=== PATIENT | female | born 1970 | race Caucasian/White ===

== ENCOUNTER 2023-01-08 18:04 | Emergency (ER) | payer OTHER ==
[~2023-01-08] VITALS: Ht 170 cm; Wt 101.0 kg
[~2023-01-08 18:04] MED LIST: AMOX500C2 PO
--- NOTE | 2023-01-08 18:08 | ED Chest Pain ---
General Chief Complaint: Chest Pain Stated Complaint: CHEST PAIN Source: patient Exam Limitations: no limitations History of Present Illness Date Seen by Provider: Jan 08, 2023 Time Seen by Provider: 18:08 Initial Comments Patient is a 52-year-old female who presents to the emergency room with a chief complaint of midsternal chest pain. Patient points to the epigastrium and states it seems to run from her umbilicus up into her chest. She describes it as both a "squeezing" and "heaviness". It started approximately an hour and a half prior to arrival. She noticed it when she woke up from a nap. She is not nauseated. She states she had chickpea salad for lunch earlier in the day. She takes no daily medications. She is not diabetic. She has had no prior heart work-up. She has no primary care doctor. She is a smoker, currently vaping. She states she does have a family history of coronary artery disease but cannot delineate in who secondary to her current agitation and anxiety. Denies any other current illnesses. Initial EKG is reassuring, normal sinus rhythm at 76 bpm with no ectopy or ST segment elevation or depression. Hypertensive in the 160s over 1 teens in her left arm, 150s over upper 90s in her right arm. Abdomen is soft. No reproducible tenderness. Timing/Duration: 1 hour Severity/Quality: severe, aching, other (heaviness) Location: central Radiation: back Activities at Onset: sleep Prior CP/Workup: no prior chest pain, no prior cardiac workup ASA po CORK INSULATOR: Yes (one baby aspirin) Associated Symptoms: shortness of breath Allergies and Home Medications Allergies Coded Allergies: codeine (Verified Allergy, Unknown, 01/08/23) Patient Home Medication List Home Medication List Reviewed: Yes Dicyclomine HCl (Dicyclomine HCl) 20 Mg Tablet, 20 MG PO QIDACHS Prescribed by: JANEEN MCLEAN on 01/09/23 0129 Hydrocodone/Acetaminophen (Hydrocodone-Acetamin 5-325 mg) 5 Mg-325 Mg Tablet, 1 TAB PO Q6H PRN for PAIN-BREAKTHROUGH Prescribed by: JANEEN MCLEAN on 01/09/23 0130 Ondansetron (Ondansetron Odt) 4 Mg Tab.rapdis, 4 MG SL Q8H PRN for NAUSEA/VOMITING Prescribed by: JANEEN MCLEAN on 01/09/23 0129 Review of Systems Review of Systems Constitutional: see HPI EENTM: No Symptoms Reported Respiratory: Shortness of Air Cardiovascular: Chest Pain Gastrointestinal: No Symptoms Reported Genitourinary: No Symptoms Reported Musculoskeletal: no symptoms reported Skin: no symptoms reported All Other Systems Reviewed Negative Unless Noted: Yes Physical Exam Vital Signs Vital Signs - First Documented 01/08/23 18:05 Temp 36.9 Pulse 79 Resp 22 B/P (MAP) 163/118 (133) Pulse Ox 100 O2 Delivery Room Air Capillary Refill : Height, Weight, BMI Height: '" Weight: lbs. oz. 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 Norm as Tested, Other (very agitated and anxious; agressive with staff; belligerant.) Skin: Normal Color, Warm/Dry Progress/Results/Core Measures Results/Orders Lab Results Laboratory Tests Test 01/08/23 18:13 01/08/23 20:30 Range/Units White Blood Count 6.7 4.3-11.0 10^3/uL Red Blood Count 4.91 3.80-5.11 10^6/uL Hemoglobin 14.5 11.5-16.0 g/dL Hematocrit 43 35-52 % Mean Corpuscular Volume 88 80-99 fL Mean Corpuscular Hemoglobin 30 25-34 pg Mean Corpuscular Hemoglobin Concent 34 32-36 g/dL Red Cell Distribution Width 12.5 10.0-14.5 % Platelet Count 273 130-400 10^3/uL Mean Platelet Volume 11.1 9.0-12.2 fL Immature Granulocyte % (Auto) 0 % Neutrophils (%) (Auto) 59 42-75 % Lymphocytes (%) (Auto) 32 12-44 % Monocytes (%) (Auto) 8 0-12 % Eosinophils (%) (Auto) 1 0-10 % Basophils (%) (Auto) 0 0-10 % Neutrophils # (Auto) 4.0 1.8-7.8 10^3/uL Lymphocytes # (Auto) 2.1 1.0-4.0 10^3/uL Monocytes # (Auto) 0.5 0.0-1.0 10^3/uL Eosinophils # (Auto) 0.1 0.0-0.3 10^3/uL Basophils # (Auto) 0.0 0.0-0.1 10^3/uL Immature Granulocyte # (Auto) 0.0 0.0-0.1 10^3/uL Prothrombin Time 12.1 L 12.2-14.7 SEC INR Comment 0.9 0.8-1.4 Activated Partial Thromboplast Time 30 24-35 SEC Sodium Level 141 135-145 MMOL/L Potassium Level 3.7 3.6-5.0 MMOL/L Chloride Level 106 98-107 MMOL/L Carbon Dioxide Level 24 21-32 MMOL/L Anion Gap 11 5-14 MMOL/L Blood Urea Nitrogen 10 7-18 MG/DL Creatinine 0.86 0.60-1.30 MG/DL Estimat Glomerular Filtration Rate 82 BUN/Creatinine Ratio 12 Glucose Level 98 70-105 MG/DL Calcium Level 9.3 8.5-10.1 MG/DL Corrected Calcium 9.1 8.5-10.1 MG/DL Magnesium Level 2.2 1.6-2.4 MG/DL Total Bilirubin 0.3 0.1-1.0 MG/DL Aspartate Amino Transf (AST/SGOT) 16 5-34 U/L Alanine Aminotransferase (ALT/SGPT) 16 0-55 U/L Alkaline Phosphatase 84 40-136 U/L Troponin I < 0.028 < 0.028 <0.028 NG/ML Total Protein 7.3 6.4-8.2 GM/DL Albumin 4.3 3.2-4.5 GM/DL Lipase 38 8-78 U/L My Orders Orders - JANEEN CMLEAN MD Aspirin Chewable Tablet (Baby Aspirin Ch (01/08/23 18:12) Cbc With Automated Diff (01/08/23 18:17) Magnesium (01/08/23 18:17) Chest 1 View, Ap/Pa Only (01/08/23 18:17) Ekg Tracing (01/08/23 18:17) Comprehensive Metabolic Panel (01/08/23 18:17) Protime With Inr (01/08/23 18:17) Partial Thromboplastin Time (01/08/23 18:17) O2 (01/08/23 18:17) Monitor-Rhythm Ecg Trace Only (01/08/23 18:17) Ed Iv/Invasive Line Start (01/08/23 18:17) Lipase (01/08/23 18:17) Troponin I [place] (01/08/23 18:17) Nitroglycerin 0.4 Mg Btl 25's (Nitrostat (01/08/23 18:30) Antacid Suspension (Mylanta Suspension (01/08/23 18:30) Lidocaine 2% Viscous 15 Ml (Xylocaine Vi (01/08/23 18:30) Sucralfate Tablet (Carafate Tablet) (01/08/23 18:30) Nitroglycerin 0.4 Mg Btl 25's (Nitrostat (01/08/23 18:19) Ketorolac Injection (Toradol Injection) (01/08/23 18:45) Ketorolac Injection (Toradol Injection) (01/08/23 18:40) Fentanyl Inj (Sublimaze Injection) (01/08/23 19:00) Troponin I [place] (01/08/23 20:30) Fentanyl Inj (Sublimaze Injection) (01/08/23 21:30) Dicyclomine Injection (Bentyl Injection) (01/08/23 21:28) Ct Abdomen/Pelvis W (01/08/23 21:50) Diphenhydramine Injection (Benadryl Inje (01/08/23 22:00) Ns Iv 1000 Ml (Sodium Chloride 0.9%) (01/08/23 21:52) Diphenhydramine Injection (Benadryl Inje (01/08/23 21:52) Iohexol Injection (Omnipaque 350 Mg/Ml 1 (01/08/23 22:15) Sodium Chloride Flush (Catheter Flush Sy (01/08/23 22:15) Ns (Ivpb) (Sodium Chloride 0.9% Ivpb Bag (01/08/23 22:15) Fentanyl Inj (Sublimaze Injection) (01/08/23 23:45) Ondansetron Injection (Zofran Injectio (01/08/23 23:45) Us Gallbladder [id number] (01/09/23 00:33) Rx-Ondansetron Po (Rx-Zofran Po) (01/09/23 01:24) Rx-Hydrocodone/Apap 5-325 Mg (Rx-Vicodin (01/09/23 01:30) Medications Given in ED Current Medications Medications Dose Ordered Sig/Tam Route Start Time Stop Time Status Last Admin Dose Admin Acetaminophen/ Hydrocodone Bitart 1 ea Q6H PRN PO 01/09/23 01:30 01/09/23 01:48 DC 01/09/23 01:44 1 EA Al Hydrox/Mg Hydrox/Simethicone 30 ml ONCE ONCE PO 01/08/23 18:30 01/08/23 18:31 DC 01/08/23 18:20 30 ML Aspirin 81 mg STK-MED ONCE .ROUTE 01/08/23 18:12 01/08/23 18:15 DC 01/08/23 18:18 243 MG Diphenhydramine HCl 25 mg ONCE ONCE IVP 01/08/23 22:00 01/08/23 22:01 DC 01/08/23 22:09 25 MG Fentanyl Citrate 50 mcg ONCE ONCE IVP 01/08/23 19:00 01/08/23 19:01 DC 01/08/23 19:03 50 MCG Fentanyl Citrate 50 mcg ONCE ONCE IVP 01/08/23 21:30 01/08/23 21:31 DC 01/08/23 21:47 50 MCG Fentanyl Citrate 50 mcg ONCE ONCE IVP 01/08/23 23:45 01/08/23 23:46 DC 01/09/23 00:10 50 MCG Iohexol 100 ml ONCE ONCE IV 01/08/23 22:15 01/08/23 22:16 DC 01/08/23 22:18 80 ML Ketorolac Tromethamine 15 mg ONCE ONCE IVP 01/08/23 18:45 01/08/23 18:46 DC 01/08/23 18:42 15 MG Lidocaine HCl 5 ml ONCE ONCE PO 01/08/23 18:30 01/08/23 18:31 DC 01/08/23 18:20 5 ML Nitroglycerin 0.4 mg NEEDED PRN SL 01/08/23 18:30 01/09/23 01:48 DC 01/08/23 18:23 0.4 MG Ondansetron HCl 8 mg ONCE ONCE IVP 01/08/23 23:45 01/08/23 23:46 DC 01/09/23 00:09 8 MG Sodium Chloride 10 ml NEEDED PRN IV 01/08/23 22:15 01/09/23 01:48 DC 01/08/23 22:18 10 ML Sodium Chloride 100 ml ONCE ONCE IV 01/08/23 22:15 01/08/23 22:16 DC 01/08/23 22:18 80 ML Sucralfate 1 gm ONCE ONCE PO 01/08/23 18:30 01/08/23 18:31 DC 01/08/23 18:20 1 GM Vital Signs/I&O 01/08/23 01/09/23 18:05 01:45 Temp 36.9 Pulse 79 87 Resp 22 18 B/P (MAP) 163/118 (133) 130/69 Pulse Ox 100 98 O2 Delivery Room Air Room Air Progress Progress Note #1: Time: 18:40 Progress Note NOtified by patient's nurse, KWAME Braun, that the patient received no relief from nitro x3 and the GI cocktail. Toradol ordered. CXR pending. Progress Note #2: Time: 21:51 Progress Note Pain returned intensely. re-ordering fentanyl and adding bentyl. CT abdomen and pelvis with contrast. Benadryl 25mg IV and IVF Progress Note #3: Time: 01:15 Progress Note Patient seen and evaluated by me. Evaluation today includes physical exam, EKG, CBC, Chem-12, troponin x2, coags, chest x-ray, CT scan abdomen and pelvis with IV contrast, gallbladder ultrasound. Pertinent physical exam findings include well-developed well-nourished obese 52-year-old female moderate to severe distress secondary to chest and epigastric pain. Vital signs are stable, slightly hypertensive with diastolic just above 110. Not tachycardic. Not hypoxic. Heart is regular, lungs are clear. Abdominal exam initially limited secondary to patient agitation however she does complain of epigastric tenderness to palpation. No rebound or involuntary guarding. Bowel sounds are present. Patient is moving all extremities equally, no lower extremity edema. No neurologic deficits noted. Differential diagnosis based on history and physical exam, acute coronary syndrome, pulmonary embolism, perforated viscus, aortic dissection. Work-up reviewed by me, EKG is normal, no ST segment elevation or depression. CBC is reviewed completely normal, chemistry is normal, troponin negative x2 4 hours from onset of pain. Coags negative. Single view chest x-ray reviewed by me independently, normal mediastinal silhouette, no effusion, no infiltrate, no pneumothorax noted. Patient is treated initially with baby aspirin, GI cocktail and sublingual nitro. She is also given Toradol, fentanyl and Benadryl. Multiple doses of fentanyl subsequently alleviated pain as did Zofran alleviate nausea. She is also given IM Bentyl. CT scan abdomen pelvis was unremarkable for any acute intra-abdominal pathology. Gallbladder ultrasound was obtained and demonstrated gallstones with slightly thickened wall. No pericholecystic fluid. Consideration for acute cholecystitis however patient's labs are completely normal and pain was resolved with medication. Patient was given prescriptions for hydrocodone and Zofran and dicyclomine for home. She was referred to Dr. Leos for further evaluation and work-up and possible cholecystectomy. She was given return precautions to include return of pain, fever and vomiting to come back to the emergency room for possible admission for cholecystectomy. She is comfortable with the plan of care, pain-free at discharge. All questions are sought and answered. Initial ECG Impression Date: Jan 08, 2023 Initial ECG Impression Time: 18:09 Initial ECG Rate: 76 Initial ECG Rhythm: Normal Sinus Initial ECG Intervals NM interval 149 QRS 94 QTc 451 Comment Normal sinus rhythm without ectopy, low voltage lead III and aVL, no ST segment elevation or depression is noted. Normal intervals Diagnostic Imaging Diagonstic Imaging: Xray Plain Films/CT/US/NM/MRI: chest Comments [facility]. [place], [place] NAME: JORGE SALINAS [facility] REC#: [id number] PT STATUS: REG ER : 1970 PHYSICIAN: JANEEN MCLEAN MD ADMIT DATE: 01/08/23/ER Draft Date of Exam:01/08/23 CHEST 1 VIEW, AP/PA ONLY INDICATION: Chest pain. EXAMINATION: AP view of the chest was obtained. COMPARISON: No previous study is available for comparison at this time. FINDINGS: Heart size and pulmonary vasculature are within normal limits and the lungs are clear, bilaterally. IMPRESSION: Unremarkable chest. Dictated on workstation # [id number] Dict: 01/08/231910 Trans: 01/08/231913 [id number] Interpreted by: EDI WERNER MD Electronically signed by: Jen Imaging: CT Comments CT Abdomen per virtual radiologic - No acute findings Departure Impression Primary Impression: Biliary colic Additional Impression: Cholelithiasis Qualified Codes: K80.20 - Calculus of gallbladder without cholecystitis without obstruction Disposition: HOME, SELF-CARE Condition: Improved Departure-Patient Inst. Decision time for Depature: 01:26 Referrals: RENETTA LEOS DO Patient Instructions: Gallbladder Diet, Gallstones ED Add. Discharge Instructions: Try and avoid fatty foods if possible. Avoid heavy cream-based foods, lots of cheeses, fried foods etc. Take dicyclomine 20 mg 30 minutes before eating up to 4 times daily. This will help with gallbladder associated pain. Ondansetron/Zofran 4 mg tablets every 8 hours as needed for nausea. Hydrocodone 5 mg tablets every 6 hours as needed for more intense pain. If you develop a fever, pain that is not relieved with prescription medications, excessive nausea and vomiting or any other emergent, concerning symptoms please return to the emergency room for reevaluation. Please call Dr. Leos's office on Tuesday for a follow-up appointment next week for further evaluation of your gallbladder and possible removal. Scripts Hydrocodone/Acetaminophen (Hydrocodone-Acetamin 5-325 mg) 5 Mg-325 Mg Tablet 1 TAB PO Q6H PRN for PAIN-BREAKTHROUGH, #15 TAB Prov: JANEEN MCLEAN MD 01/09/23 Ondansetron (Ondansetron Odt) 4 Mg Tab.rapdis 4 MG SL Q8H PRN for NAUSEA/VOMITING, #15 TAB Prov: JANEEN MCLEAN MD 01/09/23 Dicyclomine HCl (Dicyclomine HCl) 20 Mg Tablet 20 MG PO QIDACHS, #60 TAB Prov: JANEEN MCLEAN MD 01/09/23 JANEEN MCLEAN MD Jan 08, 2023 18:08
[2023-01-08] MEDS ORDERED: ASPIRIN 81 MG CHEW (CHILDREN'S ASA) ONE (18:12)
[2023-01-08] MEDS ORDERED: NITROGLYCERIN 0.4 MG SL TABS BTL 25'S SL ONE (18:19)
[2023-01-08 18:23] LABS: BASOPHILS % (AUTO) 0 % (0-10); EOSINOPHILS # (AUTO) 0.1 10^3/uL (0.0-0.3); EOSINOPHILS % (AUTO) 1 % (0-10); HEMATOCRIT 43 % (35-52); HEMOGLOBIN 14.5 g/dL (11.5-16.0); LYMPHOCYTES # (AUTO) 2.1 10^3/uL (1.0-4.0); LYMPHOCYTES % (AUTO) 32 % (12-44); MEAN CORPUSCULAR HEMOGLOBIN 30 pg (25-34); MEAN CORPUSCULAR HGB CONC 34 g/dL (32-36); MEAN CORPUSCULAR VOLUME 88 fL (80-99); MEAN PLATELET VOLUME 11.1 fL (9.0-12.2); MONOCYTES # (AUTO) 0.5 10^3/uL (0.0-1.0); MONOCYTES % (AUTO) 8 % (0-12); NEUTROPHILS % (AUTO) 59 % (42-75); PLATELET COUNT 273 10^3/uL (130-400); WHITE BLOOD COUNT 6.7 10^3/uL (4.3-11.0)
[2023-01-08] MEDS ORDERED: ANTACID SUSP 30 ML UDC (MYLANTA) PO ONE (18:30)
[2023-01-08] MEDS ORDERED: NITROGLYCERIN 0.4 MG SL TABS BTL 25'S SL PRN (18:30)
[2023-01-08] MEDS ORDERED: LIDOCAINE 2% VISCOUS 15 ML UDC PO ONE (18:30)
[2023-01-08] MEDS ORDERED: SUCRALFATE 1 GM (CARAFATE) TAB PO ONE (18:30)
[2023-01-08 18:36] LABS: INR 0.9 (0.8-1.4); PROTHROMBIN TIME PATIENT 12.1 SEC (12.2-14.7)
[2023-01-08 18:37] LABS: ALBUMIN 4.3 GM/DL (3.2-4.5); POTASSIUM 3.7 MMOL/L (3.6-5.0)
[2023-01-08 18:39] LABS: CALCIUM 9.3 MG/DL (8.5-10.1)
[2023-01-08 18:40] LABS: TOTAL PROTEIN 7.3 GM/DL (6.4-8.2)
[2023-01-08] MEDS ORDERED: KETOROLAC 15 MG/ML VIAL ONE (18:40)
[2023-01-08 18:42] LABS: BILIRUBIN,TOTAL 0.3 MG/DL (0.1-1.0)
[2023-01-08 18:43] LABS: CREATININE SERUM 0.86 MG/DL (0.60-1.30)
[2023-01-08] MEDS ORDERED: KETOROLAC 15 MG/ML VIAL IVP ONE (18:45)
[2023-01-08 18:46] LABS: MAGNESIUM 2.2 MG/DL (1.6-2.4)
[2023-01-08] MEDS ORDERED: fentaNYL INJ 100 MCG/2 ML AMP IVP ONE ×3 (19:00→23:45)
--- NOTE | 2023-01-08 19:14 | Diagnostic Imaging Report ---
INDICATION: Chest pain. EXAMINATION: AP view of the chest was obtained. COMPARISON: No previous study is available for comparison at this time. FINDINGS: Heart size and pulmonary vasculature are within normal limits and the lungs are clear, bilaterally. IMPRESSION: Unremarkable chest. Dictated by: Dictated on workstation # [id number]
[2023-01-08] MEDS ORDERED: DICYCLOMINE 10 MG/ML (BENTYL) 2 ML AMP IM STA (21:28)
[2023-01-08] MEDS ORDERED: diphenhydrAMINE 50 MG/ML INJ (BENADRYL) ONE (21:52)
[2023-01-08] MEDS ORDERED: NS IV 1000 ML 1,000 ML IV STA (21:52)
[2023-01-08] MEDS ORDERED: diphenhydrAMINE 50 MG/ML INJ (BENADRYL) IVP ONE (22:00)
[2023-01-08] MEDS ORDERED: IOHEXOL 350 MG/ML 100 ML (OMNIPAQUE 350) VIAL IV ONE (22:15)
[2023-01-08] MEDS ORDERED: CATHETER FLUSH 10 ML SYR IV PRN (22:15)
[2023-01-08] MEDS ORDERED: NS 100 ML (IVPB) BAG IV ONE (22:15)
[2023-01-08] MEDS ORDERED: ONDANSETRON 4 MG/2 ML (SDV) Z0FRAN IVP ONE (23:45)
[2023-01-09] MEDS ORDERED: RX-ONDANSETRON 4 MG ODT (ZOFRAN) PPK #4 PO STA (01:24)
[2023-01-09] MEDS ORDERED: DICY20TA PO (01:29)
[2023-01-09] MEDS ORDERED: ONDA4TAB11 SL (01:29)
[2023-01-09] MEDS ORDERED: ACHD5005 PO (01:29)
[2023-01-09 01:45] VITALS: BP 130/69
--- NOTE | 2023-01-09 02:27 | Diagnostic Imaging Report ---
PROCEDURE: US Gallbladder. TECHNIQUE: Multiple real-time grayscale images were obtained over the right upper quadrant in various projections. Bowel gas limits evaluation of abdominal structures. INDICATION: Epigastric pain with nausea and emesis Liver is unremarkable in appearance. Multiple echogenic mobile calculi are seen within the lumen of the gallbladder without gallbladder wall thickening or pericholecystic fluid. There is no evidence of biliary ductal dilatation. Pancreas, aorta, inferior vena cava and right atrium are obscured. No ascites was documented. IMPRESSION: Cholelithiasis without other evidence of acute abnormality on limited study. Dictated by: Dictated on workstation # [id number]
--- NOTE | 2023-01-09 07:04 | Diagnostic Imaging Report ---
PROCEDURE: CT abdomen and pelvis with contrast. TECHNIQUE: Multiple contiguous axial images were obtained through the abdomen and pelvis after administration of intravenous contrast. Auto Exposure Controls were utilized during the CT exam to meet ALARA standards for radiation dose reduction. All CT scans use one or more of the following dose optimizing techniques: automated exposure control, MA and/or KvP adjustment based on patient size and exam type or iterative reconstruction. INDICATION: Abdominal pain. FINDINGS: The lung bases are clear. The liver is normal in size. There is a 1 cm cyst in the right lobe. Gallbladder is mildly distended. There is no biliary duct dilatation. Spleen is normal. Pancreas and adrenal glands are unremarkable. Kidneys normal in appearance. Aorta is nonaneurysmal. Bowel gas pattern is nonspecific. There is some diverticular disease without evidence of diverticulitis. No free air. No ascites. No focal inflammatory changes. Bladder is normal. There is no pelvic mass, adenopathy or free fluid. There are mild degenerative changes in the spine. IMPRESSION: Benign hepatic cyst. Diverticular disease without evidence of diverticulitis. Mild distention of the gallbladder. No other acute abnormality in the abdomen or pelvis Dictated by: Dictated on workstation # [id number]
== END 2023-01-09 01:48 | disposition home or self-care (01) ==
LOC: ER 18:07
DX: K80.70 Calculus of gallbladder and bile duct without cholecystitis without obstruction (principal); R03.0 Elevated blood-pressure reading, without diagnosis of hypertension; F17.290 Nicotine dependence, other tobacco product, uncomplicated; Z88.5 Allergy status to narcotic agent
CPT/HCPCS: 36415; 71045; 74177; 76705; 80053; 83690; 83735; 84484; 85025; 85610; 85730; 93005; 93041